=== PATIENT | female | born 1995 | race Caucasian/White ===

== ENCOUNTER 2017-04-28 21:29 | Emergency (ER) | payer OTHER ==
[~2017-04-28] VITALS: Ht 172.7 cm; Wt 69.4 kg
[2017-04-28 21:30] VITALS: TEMP 37.2; Ht 172.7 cm; Wt 69.4 kg
[2017-04-28] MEDS ORDERED: XYLOCAINE 1%/SOD BICARB 20 ML VIAL INFIL STA (21:53)
--- NOTE | 2017-04-28 21:55 | EMERGENCY ROOM VISIT NOTE ---
History Report prepared by Jameelibronak: Karri Grace Under the Supervision of: Dr. Miguel Westfall M.D. First contact with patient: 21:46 Chief Complaint: LACERATION/CUT (SUT/DERMABOND) Stated Complaint: LACERATION TO RT HAND, 2ND DIGIT Nursing Triage Summary: cut right index finger with a knife while washing dishes. small lac noted. History of Present Illness The patient is a 21 year old female who presents to the Emergency Room with complaints of a sudden laceration that occurred prior to arrival. She rates her pain as a 5/10 in severity. The patient states that she was washing a knife and cut through the sponge. She reports that she kept washing dishes when she noticed blood. The patient states that she realized she had a laceration to her right index finger from a knife. She reports that she was not sure if she needed stitches, which prompted her to report to the ED. The patient states that she is a student and admits that she is up to date with her vaccinations. She denies any allergies. Source of History: patient Onset: HOT DOG VENDER Position: finger(s) (right index) Symptom Intensity: 5/10 Quality: other (laceration) Timing: other (sudden) Review of Systems See HPI for pertinent positives & negatives. A total of 10 systems reviewed and were otherwise negative. Past Medical & Surgical The patient reports no pertinent medical or surgical history. Family History Patient reports no known family medical history. Social History Smoking Status: Never Smoker Smokeless Tobacco Use: No Alcohol Use: none Drug Use: none Marital Status: single Housing Status: lives with roommate Occupation Status: [employer] student Current/Historical Medications Scheduled Control Pills ( Control Pills), 1 TAB PO DAILY Spironolactone (Aldactone), 100 MG PO DAILY Allergies Coded Allergies: No Known Allergies (Unverified , 04/28/17) Physical Exam Vital Signs Date Time Temp Pulse Resp B/P (MAP) Pulse Ox O2 Delivery O2 Flow Rate FiO2 04/28/17 22:43 99 18 120/89 98 Room Air 04/28/17 21:30 37.2 82 18 143/93 96 Room Air Physical Exam GENERAL: Patient is a healthy-appearing well-nourished 21 year old female HEAD: Normocephalic atraumatic EYES: Ocular movements intact pupils equal and react to light OROPHARYNX mucous membranes are moist no exudates present no erythema or edema present NECK: Supple no nuchal rigidity CHEST: Good equal expansion LUNGS: Clear and equal to auscultation CARDIAC: Normal S1 and S2 ABDOMEN: Soft nontender no guarding BACK: No CVA tenderness EXTREMITIES: No pain upon palpation normal muscle strength in all groups no clubbing cyanosis or edema. 2.5 cm laceration to right index finger. No tendon involvement. NEURO: Patient is following commands and answering questions appropriately. Alert and oriented x3 Cranial Nerves 2-12 grossly intact Medical Decision & Procedures Procedure Location: Right index finger Total length: 2.6 cm Complexity: simple linear Verbal consent was obtained after the risks and benefits were explained, including but not limited to bleeding, scarring, infection, pain, and bone/joint /nerve damage. At this time, the risks of the procedure are less than the risks of NOT performing the procedure. A time out was taken and the correct patient and site identified. The skin was prepped with betadine. The target area was anesthetized with 4 ml of 1% lidocaine without epinephrine. Copious irrigation was performed using 500 ccs of normal saline. The skin was re-prepped with betadine and a sterile field set. The wound was explored for foreign bodies and none found. Examination revealed no injury to deep structures such as tendons, bone, or significant blood vessels. Debridement was not performed. The wound edges were approximated using 4, 5-0 simple interrupted nylon sutures. Hemostasis and excellent approximation was achieved. Antibacterial ointment and a sterile dressing applied. Detailed wound care instructions and signs and symptoms of infection reviewed with the the patient. No complications and the patient tolerated the procedure well. ED Course 2150: Past medical records reviewed. The patient was evaluated in room D03B. A complete history and physical examination was performed. 2153: Ordered Lidocaine HCl 20 ml INFIL. 2215: I performed a laceration repair. See procedure notes for further detail. 2228: Upon reexamination the patient is doing well. I discussed results and treatment plan with the patient. She verbalizes agreement and understanding. The patient is ready for discharge Medical Decision The differential diagnosis includes: laceration. This is an 21-year-old female who presents emergency department complaining of laceration. The patient is up-to-date on her tetanus. The laceration was repaired as above. Patient was placed in a splint and will follow-up in 7-10 days to have sutures out. There did not appear to be any tendon involvement on examination. Medication Reconcilliation Current Medication List: was personally reviewed by me Blood Pressure Screening Patient's blood pressure: Elevated blood pressure Blood pressure disposition: Referred to PCP Impression Primary Impression: Laceration of finger Scribe Attestation The scribe's documentation has been prepared under my direction and personally reviewed by me in its entirety. I confirm that the note above accurately reflects all work, treatment, procedures, and medical decision making performed by me. Departure Information Dispostion Home / Self-Care Referrals No Doctor, Assigned (PCP) Forms HOME CARE DOCUMENTATION FORM, IMPORTANT VISIT INFORMATION Patient Instructions ED Laceration Hand, My [facility], [facility] Additional Instructions Sutures out in 7-10 days You have been examined and treated today on an emergency basis only. This is not a substitute for, or an effort to provide, complete comprehensive medical care. It is impossible to recognize and treat all injuries or illnesses in a single emergency department visit. It is therefore important that you follow up closely with [facility]. Call as soon as possible for an appointment. Thank you for your time and consideration. I look forward to speaking with you again soon. Please don't hesitate to call us if you have any questions. Problem Qualifiers Primary Impression: Laceration of finger Encounter type: initial encounter Finger: index finger Damage to nail status: without damage Foreign body presence: without foreign body Laterality: right Qualified Codes: S61.210A - Laceration without foreign body of right index finger without damage to nail, initial encounter
[2017-04-28] MEDS ORDERED: BCPILLS PO (22:02)
[2017-04-28] MEDS ORDERED: SPIR100T PO (22:02)
[2017-04-28 22:43] VITALS: BP 120/89; PULSE 99; O2SAT 98
== END 2017-04-28 22:45 | disposition home or self-care (01) ==
LOC: C.EDB 21:31 → C.EDD 22:45
DX: S61.210A Laceration without foreign body of right index finger without damage to nail, initial encounter (principal); W26.0XXA Contact with knife, initial encounter; Y92.9 Unspecified place or not applicable; Y93.G1 Activity, food preparation and clean up; Z79.3 Long term (current) use of hormonal contraceptives; Z79.899 Other long term (current) drug therapy

== ENCOUNTER 2017-05-08 09:06 | Emergency (ER) | payer OTHER ==
[~2017-05-08] VITALS: Ht 172.7 cm; Wt 67.0 kg
[~2017-05-08 09:06] MED LIST: BCPILLS PO; SPIR100T PO
[2017-05-08 09:14] VITALS: TEMP 36.4; Ht 172.7 cm; Wt 67.0 kg
[2017-05-08 09:52] VITALS: BP 113/64; PULSE 69; O2SAT 100
--- NOTE | 2017-05-08 14:49 | EMERGENCY ROOM VISIT NOTE ---
ED Visit Note First contact with patient: 09:17 CHIEF COMPLAINT: Suture removal This patient returns to the ED today for removal of sutures that were placed 10 days ago. There has been no swelling, redness, or drainage from the wound. The patient feels like the laceration is healing well. REVIEW OF SYSTEMS: Head: No headache, injury or neck pain. Skin: No rash, new lesions, or masses. General: No fever or chills, fatigue, loss of appetite , or significant recent weight gain or loss. PMH: The patient is healthy; there is no significant medical or surgical history. SOCIAL HISTORY: Patient lives at home. PHYSICAL EXAM: Vital Signs: Reviewed Nurse's notes. There is a sutured wound on the palm of the right second finger over the proximal phalanx with no signs of infection. There is no erythema, swelling, or tenderness. EMERGENCY DEPARTMENT COURSE: The sutures were removed without any difficulty and there was no separation of the wound edges. DIAGNOSIS: Healing laceration and suture removal DISCHARGE INSTRUCTIONS AND TREATMENT: Wash any remaining crusts off of the wound today and resume your normal activities. Current/Historical Medications Scheduled Control Pills ( Control Pills), 1 TAB PO DAILY Spironolactone (Aldactone), 100 MG PO DAILY Allergies Coded Allergies: No Known Allergies (Unverified , 05/08/17) Vital Signs Date Time Temp Pulse Resp B/P (MAP) Pulse Ox O2 Delivery O2 Flow Rate FiO2 05/08/17 09:52 69 18 100 05/08/17 09:14 36.4 65 18 123/82 100 Room Air Departure Information Impression Primary Impression: Encounter for removal of sutures Dispostion Home / Self-Care Condition GOOD Referrals No Doctor, Assigned (PCP) Forms HOME CARE DOCUMENTATION FORM, IMPORTANT VISIT INFORMATION Patient Instructions [facility]
== END 2017-05-08 09:52 | disposition home or self-care (01) ==
LOC: C.EDB 09:07 → C.EDA 09:52
DX: Z48.02 Encounter for removal of sutures (principal); S61.210D Laceration without foreign body of right index finger without damage to nail, subsequent encounter; W26.0XXD Contact with knife, subsequent encounter